=== PATIENT | female | born 1930 | race Caucasian/White ===

== ENCOUNTER 2016-04-12 14:58 | Emergency (ER) | payer MEDICARE, OTHER, BC ==
[~2016-04-12 14:58] MED LIST: ACETAMINOPHEN325 MG PO; ACETAMINOPHEN650 MG RC; ALBUTEROL2.5 MG/3 M NEB; CEFTIN250 MG PO; CENTRAL VITE F1 EACH PO; CULTURELLE1 EACH PO; DAILY VITAMIN1 EAC3 PO; IPRAT-ALBUT 0.5-3 ML NEB; LACTULOSE20 GM/30 M PO; METOPROLOL TART25 MG PO; MULTIVITAMINS1 EAC7 PO; NEURONTIN300 MG PO; NORVASC10 MG PO; OMEPRAZOLE20 MG PO; ONDANSETRON2 MG/1 ML IM; PERCOCET 7.5-31 EACH PO; PRINIVIL5 MG PO; PROTONIX40 MG PO; Q-TUSSIN DM SY118 ML PO; ROBAFEN100 MG/5 M PO; SENNA8.6 MG PO; STOOL SOFTENER100 MG PO; SYNTHROID100 MCG PO; TESSALON PERLE100 MG PO; ZOFRAN4 MG PO; ZOLOFT100 MG PO; ZOLOFT50 MG PO
[2016-04-25] MEDS ORDERED: SYNTHROID100 MCG PO (09:40)
[2016-04-25] MEDS ORDERED: NORVASC10 MG PO (09:40)
[2016-04-25] MEDS ORDERED: NEURONTIN300 MG PO (09:40)
[2016-04-25] MEDS ORDERED: PERCOCET 7.5-31 EACH PO (09:41)
[2016-04-25] MEDS ORDERED: PROTONIX40 MG PO (09:41)
[2016-04-25] MEDS ORDERED: DAILY VITE1 EACH PO (09:41)
[2016-04-25] MEDS ORDERED: SENNA8.6 MG PO (09:42)
[2016-04-25] MEDS ORDERED: ZOLOFT50 MG PO (09:42)
[2016-04-25] MEDS ORDERED: IPRAT-ALBUT 0.5-3 ML NEB (09:42)
[2016-04-25] MEDS ORDERED: ACETAMINOPHEN325 MG PO (09:43)
[2016-04-25] MEDS ORDERED: ROBAFEN100 MG/5 M PO (09:43)
[2016-04-25] MEDS ORDERED: TESSALON PERLE100 MG PO (09:44)
[2016-04-25] MEDS ORDERED: ZOFRAN4 MG PO (09:46)
[2016-04-25] MEDS ORDERED: LACTULOSE20 GM/30 M PO (09:46)
[2016-04-25] MEDS ORDERED: ALBUTEROL2.5 MG/3 M NEB (09:47)
[2016-04-25] MEDS ORDERED: METOPROLOL TART25 MG PO (09:47)
== END 2016-04-12 19:37 | disposition critical access hospital (66) ==
LOC: ER 14:58
DX: N17.9 Acute kidney failure, unspecified (principal); K52.9 Noninfective gastroenteritis and colitis, unspecified; R19.5 Other fecal abnormalities; I10 Essential (primary) hypertension; F41.9 Anxiety disorder, unspecified; F32.9 Major depressive disorder, single episode, unspecified; K21.9 Gastro-esophageal reflux disease without esophagitis; E03.9 Hypothyroidism, unspecified; M81.0 Age-related osteoporosis without current pathological fracture; Z85.038 Personal history of other malignant neoplasm of large intestine
CPT/HCPCS: 36415; 51701; 96361; 96365; 96375

== ENCOUNTER 2016-04-12 14:58 | Inpatient (IN) | payer MEDICARE, OTHER ==
--- NOTE | 2016-04-16 03:24 | NUR ---
0200 changes to 0300 due to seasonal time change.
--- NOTE | 2016-04-17 12:55 | NUR ---
1000-MD HAS SEEN AND ASSESSED THIS AM. UPDATED ON PT CONDITION. N/O'S NOTED
--- NOTE | 2016-04-18 06:46 | NUR ---
0342 - PT ARRIVED TO FLOOR VIA BED WITHOUT S/S OF DISTRESS. CALL JAIMES PLACED WITHIN REACH. SIDE RAILS UP X 2. BED ALARM ON.
[2016-04-25] MEDS ORDERED: NEURONTIN300 MG PO (09:40)
[2016-04-25] MEDS ORDERED: NORVASC10 MG PO (09:40)
[2016-04-25] MEDS ORDERED: SYNTHROID100 MCG PO (09:40)
[2016-04-25] MEDS ORDERED: PROTONIX40 MG PO (09:41)
[2016-04-25] MEDS ORDERED: DAILY VITE1 EACH PO (09:41)
[2016-04-25] MEDS ORDERED: PERCOCET 7.5-31 EACH PO (09:41)
[2016-04-25] MEDS ORDERED: ZOLOFT50 MG PO (09:42)
[2016-04-25] MEDS ORDERED: IPRAT-ALBUT 0.5-3 ML NEB (09:42)
[2016-04-25] MEDS ORDERED: SENNA8.6 MG PO (09:42)
[2016-04-25] MEDS ORDERED: ROBAFEN100 MG/5 M PO (09:43)
[2016-04-25] MEDS ORDERED: ACETAMINOPHEN325 MG PO (09:43)
[2016-04-25] MEDS ORDERED: TESSALON PERLE100 MG PO (09:44)
[2016-04-25] MEDS ORDERED: LACTULOSE20 GM/30 M PO (09:46)
[2016-04-25] MEDS ORDERED: ZOFRAN4 MG PO (09:46)
[2016-04-25] MEDS ORDERED: METOPROLOL TART25 MG PO (09:47)
[2016-04-25] MEDS ORDERED: ALBUTEROL2.5 MG/3 M NEB (09:47)
== END 2016-04-21 14:11 | DRG 393 ==
LOC: ER 14:58 → ICU 19:38 → MED 19:38 → ICU 04-14 12:20 → MED 04-18 03:48
PROVIDERS: ADMIT Internal Medicine
PROC: 30233N1 Transfusion of Nonautologous Red Blood Cells into Peripheral Vein, Percutaneous Approach (ICD-10-PCS; principal; 2016-04-13)
PROC: 30233N1 Transfusion of Nonautologous Red Blood Cells into Peripheral Vein, Percutaneous Approach (ICD-10-PCS; 2016-04-14)
DX: K55.9 Vascular disorder of intestine, unspecified (principal); K57.93 Diverticulitis of intestine, part unspecified, without perforation or abscess with bleeding; J18.9 Pneumonia, unspecified organism; A09 Infectious gastroenteritis and colitis, unspecified; D62 Acute posthemorrhagic anemia; N17.9 Acute kidney failure, unspecified; N39.0 Urinary tract infection, site not specified; E87.1 Hypo-osmolality and hyponatremia; E87.2 Acidosis; I12.9 Hypertensive chronic kidney disease with stage 1 through stage 4 chronic kidney disease, or unspecified chronic kidney disease; N18.9 Chronic kidney disease, unspecified; F41.9 Anxiety disorder, unspecified; F32.9 Major depressive disorder, single episode, unspecified; B96.20 Unspecified Escherichia coli [E. coli] as the cause of diseases classified elsewhere; E03.9 Hypothyroidism, unspecified; Z85.038 Personal history of other malignant neoplasm of large intestine; F03.90 Unspecified dementia, unspecified severity, without behavioral disturbance, psychotic disturbance, mood disturbance, and anxiety; K21.9 Gastro-esophageal reflux disease without esophagitis; Z90.49 Acquired absence of other specified parts of digestive tract; Z90.710 Acquired absence of both cervix and uterus; Z79.899 Other long term (current) drug therapy; Z66 Do not resuscitate; E86.0 Dehydration; E83.42 Hypomagnesemia
CPT/HCPCS: 36415; 74020; 87507; 97162-GP; J0696; J2550; J7050; P9021

== ENCOUNTER 2016-05-13 03:01 | Emergency (ER) | payer MEDICARE, OTHER, BC ==
[~2016-05-13 03:01] MED LIST changes: +DAILY VITE1 EACH PO
== END 2016-05-13 07:14 | disposition critical access hospital (66) ==
LOC: ER 03:01
DX: R11.10 Vomiting, unspecified (principal); F41.9 Anxiety disorder, unspecified; F32.9 Major depressive disorder, single episode, unspecified; K21.9 Gastro-esophageal reflux disease without esophagitis; I10 Essential (primary) hypertension; E03.9 Hypothyroidism, unspecified; Z79.899 Other long term (current) drug therapy
CPT/HCPCS: 36415; 96361; 96374

== ENCOUNTER 2016-05-13 03:01 | Inpatient (IN) | payer MEDICARE, OTHER ==
[2016-05-16] MEDS ORDERED: NEURONTIN300 MG PO (13:18)
[2016-05-16] MEDS ORDERED: METOPROLOL TART25 MG PO (13:19)
[2016-05-16] MEDS ORDERED: PROTONIX40 MG PO (13:19)
[2016-05-16] MEDS ORDERED: DAILY VITE1 EACH PO (13:19)
[2016-05-16] MEDS ORDERED: SYNTHROID100 MCG PO (13:19)
[2016-05-16] MEDS ORDERED: PERCOCET 7.5-31 EACH PO (13:20)
[2016-05-16] MEDS ORDERED: SENNA8.6 MG PO (13:20)
[2016-05-16] MEDS ORDERED: ZOLOFT50 MG PO (13:21)
[2016-05-16] MEDS ORDERED: ROBAFEN100 MG/5 M PO (13:21)
[2016-05-16] MEDS ORDERED: ACETAMINOPHEN325 MG PO (13:22)
[2016-05-16] MEDS ORDERED: TESSALON PERLE100 MG PO (13:22)
[2016-05-16] MEDS ORDERED: LACTULOSE20 GM/30 M PO (13:27)
[2016-05-16] MEDS ORDERED: ALBUTEROL2.5 MG/3 M NEB (13:27)
--- NOTE | 2016-05-16 15:07 | NUR ---
1400: REPORT CALLED TO [facility], ACCEPTING NURSE-RIGOBERTO AMELIA STATED THAT SHE IS FAMILAR WITH PATIENT AND DID NOT NEED AND INDEPTH REPORT ON PATIENT TO TRANSFER BACK TO INTERMEDIATE FACILITY.
== END 2016-05-16 14:15 | DRG 378 ==
LOC: ER 03:01 → MED 07:15
PROVIDERS: ADMIT Internal Medicine Cardiovascular Disease
DX: K92.2 Gastrointestinal hemorrhage, unspecified (principal); K55.9 Vascular disorder of intestine, unspecified; I10 Essential (primary) hypertension; E03.9 Hypothyroidism, unspecified; F41.9 Anxiety disorder, unspecified; F32.9 Major depressive disorder, single episode, unspecified; Z66 Do not resuscitate; F03.90 Unspecified dementia, unspecified severity, without behavioral disturbance, psychotic disturbance, mood disturbance, and anxiety; Z85.038 Personal history of other malignant neoplasm of large intestine; K21.9 Gastro-esophageal reflux disease without esophagitis; M81.0 Age-related osteoporosis without current pathological fracture; G62.9 Polyneuropathy, unspecified; Z79.899 Other long term (current) drug therapy
CPT/HCPCS: 36415

== ENCOUNTER 2016-05-19 00:50 | Inpatient (IN) | payer MEDICARE, OTHER ==
[~2016-05-19] VITALS: Ht 157.5 cm; Wt 74.8 kg
--- NOTE | 2016-05-23 15:34 | NUR ---
1436 - REPORT GIVEN TO RIGOBERTO CISNEROS LPN AT THE [facility]. PT TO BE TRANSFERRED TO ROOM 111-1 PER JONATHAN.
== END 2016-05-23 15:05 | DRG 377 ==
LOC: ER 00:50 → MED 04:02
PROVIDERS: ADMIT Internal Medicine
PROC: 30233N1 Transfusion of Nonautologous Red Blood Cells into Peripheral Vein, Percutaneous Approach (ICD-10-PCS; principal; 2016-05-19)
DX: K92.2 Gastrointestinal hemorrhage, unspecified (principal); J18.9 Pneumonia, unspecified organism; D62 Acute posthemorrhagic anemia; N39.0 Urinary tract infection, site not specified; N17.9 Acute kidney failure, unspecified; J90 Pleural effusion, not elsewhere classified; Y95 Nosocomial condition; B96.1 Klebsiella pneumoniae [K. pneumoniae] as the cause of diseases classified elsewhere; I10 Essential (primary) hypertension; E03.9 Hypothyroidism, unspecified; F03.90 Unspecified dementia, unspecified severity, without behavioral disturbance, psychotic disturbance, mood disturbance, and anxiety; F41.9 Anxiety disorder, unspecified; F32.9 Major depressive disorder, single episode, unspecified; Z85.038 Personal history of other malignant neoplasm of large intestine; K21.9 Gastro-esophageal reflux disease without esophagitis; Z90.49 Acquired absence of other specified parts of digestive tract; Z90.710 Acquired absence of both cervix and uterus; Z79.899 Other long term (current) drug therapy; Z66 Do not resuscitate; I87.2 Venous insufficiency (chronic) (peripheral)
CPT/HCPCS: 36415; J3370; J7050; P9021

== ENCOUNTER 2016-05-19 00:50 | Emergency (ER) | payer MEDICARE, BC, OTHER | END 2016-05-19 04:01 | disposition critical access hospital (66) | LOC: ER 00:50 | DX: D50.0 Iron deficiency anemia secondary to blood loss (chronic) (principal); K92.2 Gastrointestinal hemorrhage, unspecified; N28.9 Disorder of kidney and ureter, unspecified; F41.9 Anxiety disorder, unspecified; F32.9 Major depressive disorder, single episode, unspecified; K21.9 Gastro-esophageal reflux disease without esophagitis; E03.9 Hypothyroidism, unspecified; I10 Essential (primary) hypertension; Z79.899 Other long term (current) drug therapy | CPT/HCPCS: 36415; 96374 ==

== ENCOUNTER 2016-06-07 23:43 | Emergency (ER) | payer MEDICARE, BC | END 2016-06-08 05:55 | disposition short-term general hospital (02) | LOC: ER 23:43 | DX: J96.00 Acute respiratory failure, unspecified whether with hypoxia or hypercapnia (principal); J90 Pleural effusion, not elsewhere classified; J18.9 Pneumonia, unspecified organism; J98.19 Other pulmonary collapse; R11.0 Nausea; F32.9 Major depressive disorder, single episode, unspecified; F41.9 Anxiety disorder, unspecified; E03.9 Hypothyroidism, unspecified; K21.9 Gastro-esophageal reflux disease without esophagitis; I10 Essential (primary) hypertension; Z79.899 Other long term (current) drug therapy | CPT/HCPCS: 36415; 51702; 94640; 96365; 96367; 96375; J1940 ==

== ENCOUNTER 2016-06-16 12:24 | Emergency (ER) | payer MEDICARE, BC, OTHER | END 2016-06-16 16:25 | disposition home or self-care (01) | LOC: ER 12:24 | DX: R19.7 Diarrhea, unspecified (principal); K64.4 Residual hemorrhoidal skin tags; I13.0 Hypertensive heart and chronic kidney disease with heart failure and stage 1 through stage 4 chronic kidney disease, or unspecified chronic kidney disease; E11.22 Type 2 diabetes mellitus with diabetic chronic kidney disease; N18.9 Chronic kidney disease, unspecified; I50.9 Heart failure, unspecified; E07.9 Disorder of thyroid, unspecified; J44.9 Chronic obstructive pulmonary disease, unspecified; F41.9 Anxiety disorder, unspecified; F32.9 Major depressive disorder, single episode, unspecified; Z79.899 Other long term (current) drug therapy | CPT/HCPCS: 36415; 96360; 96361 ==

== ENCOUNTER 2016-11-02 17:52 | Inpatient (IN) | payer MEDICARE, BC, OTHER ==
[~2016-11-02] VITALS: Ht 157.5 cm; Wt 119.1 kg
--- NOTE | 2016-11-04 19:27 | NUR ---
1914 PATIENT SCHEDULING MANAGER CALLED TO REPORT PATIENT HAVING SOME MILD ST ELEVATION ON TELE. MD BONILLA HERE AND WENT IN TO ASSESS PATIENT AT THIS TIME. VITALS OBTAINED B/P 160/88, HR 94, TEMP. 97.2, O2 93% ON 2 LITERS NC, RESPIRATIONS 20
--- NOTE | 2016-11-05 00:15 | NUR ---
AT 21:30 PT SKIN BEGAN TO MOTTLE, ADVISED DR. BONILLA. DR. BONILLA PHONED FAMILY AT APPROXIMATELY 21:50 AND SPOKE TO LESLIE PERES AND ADVISED OF PT STATUS. DR. BONILLA WROTE ORDERS TO TRANSFER TO ICU. PT LAST TROPONIN LEVEL 2.072 SUGGESTING ACUTE MN. PT LAST BP AT 23:35 101/74 AND HR 103. PT SENT TO ICU AT 23:55.
--- NOTE | 2016-11-05 00:25 | NUR ---
2345 11/04/16 PT TRANSFERRED FROM MED SURG TO ROOM 200-3 FOR COMPLAINTS OF TACHYCARDIA. PT NONVERBAL, UNABLE TO FOLLOW COMMANDS. BP 83/60, HR 150 WIDE COMPLEX TACHYCARDIA. SKIN COOL AND CLAMMY. PERIPHERAL PULSES RAPID AND THREADY.
--- NOTE | 2016-11-05 11:26 | NUR ---
1000-MD HERE TO SEE AND ASSESS PT AT THIS TIME. UPDATED ON PT CONDITION. DENIES PAIN OR PROBLEMS AT THIS TIME. WILL MONITOR
--- NOTE | 2016-11-05 17:43 | NUR ---
1500-MD AWARE OF INCREASED BNP: 44,000. N/O'S NOTED FOR MORE IV LASIX 40MG. MD AWARE OF HYPOTENSION AND NO UOP. 1800-PT APPEARS TO BE RESTING COMFORTABLY AT THIS TIME. APPROX 50ML URINE NOTED IN F/C AT THIS TIME. PT STATES CAN NOT EAT RIGHT NOW. MD STATES MAY HAVE LIQUIDS TOLERATES. WILL MONITOR
--- NOTE | 2016-11-06 14:05 | NUR ---
1230-MD HERE TO SEE AND ASSESS PT. DISCUSSING CONDITION AND POC WITH PT AND AT THIS TIME. N/O'S NOTED
--- NOTE | 2016-11-08 13:42 | NUR ---
1100-MD HERE TO SEE PT AT THIS TIME. UPDATED ON PT CONDITION. TO HAVE HOSPICE CONSULT. PT APPEARS TO BE RESTING AT THIS TIME. WILL MONITOR
--- NOTE | 2016-11-08 17:41 | NUR ---
1700-MD HERE TO SEE AND ASSESS PT AT THIS TIME. NOTIFIED PT WITH CHANGE IN BREATHING PATTERN SINCE THIS AM. INCREASED AND MORE LABORED. NOTIFIED THAT AND SON, BOTH AWARE OF HOSPICE CONSULT AND AGREES TO POC. PLANS TO TRANSFER BACK TO [facility] TOMORROW WITH HOSPICE. COMFORT MEASURES. WILL MONITOR. VS STABLE AT THIS TIME
--- NOTE | 2016-11-09 09:56 | NUR ---
PATIENT HAS BEEN IN RESP. DISTRESS THIS AM. NT SUCTIONED SEVERAL TIMES. SMALL AMOUNT BLOOD TINGED SECRETIONS NOTED. MORPHINE HAS BEEN GIVEN TO ASSIST WITH EASE OF BREATHING. CURRENTLY ON NON REBREATHER WITH SATS AROUND 98%. SPOKE WITH GRANDANAMIKA THIS AM. AWARE OF PATIENTS CONDITION.
== END 2016-11-09 14:40 | DRG 371 ==
LOC: ER 17:52 → MED 21:42 → ICU 21:42
PROVIDERS: ADMIT Internal Medicine
DX: A04.72 Enterocolitis due to Clostridium difficile, not specified as recurrent (principal); I50.23 Acute on chronic systolic (congestive) heart failure; I21.4 Non-ST elevation (NSTEMI) myocardial infarction; I13.0 Hypertensive heart and chronic kidney disease with heart failure and stage 1 through stage 4 chronic kidney disease, or unspecified chronic kidney disease; N17.9 Acute kidney failure, unspecified; E87.1 Hypo-osmolality and hyponatremia; I47.1 Supraventricular tachycardia; N18.9 Chronic kidney disease, unspecified; G30.9 Alzheimer's disease, unspecified; F02.80 Dementia in other diseases classified elsewhere, unspecified severity, without behavioral disturbance, psychotic disturbance, mood disturbance, and anxiety; Z66 Do not resuscitate; E03.9 Hypothyroidism, unspecified; F41.8 Other specified anxiety disorders; K21.9 Gastro-esophageal reflux disease without esophagitis; R13.10 Dysphagia, unspecified; Z51.5 Encounter for palliative care; S09.90XA Unspecified injury of head, initial encounter; W01.0XXA Fall on same level from slipping, tripping and stumbling without subsequent striking against object, initial encounter; Y92.121 Bathroom in nursing home as the place of occurrence of the external cause
CPT/HCPCS: 36415; 87502; 87507; 93306; 96361; 96365; 97162-GP; J1644; J1650; J1940; J2060